=== PATIENT | female | born 2000 | race Caucasian/White ===

== ENCOUNTER 2021-07-04 11:39 | Emergency (ER) | payer OTHER, SELFPAY ==
--- NOTE | ~2021-07-04 | XR_ITS ---
EXAMINATION: XR CHEST CLINICAL INFORMATION: Asthma. COMPARISON: None TECHNIQUE: Frontal view of the chest was obtained. FINDINGS: No significant abnormality is noted involving the heart, lungs, mediastinum, bony thorax or soft tissues. XR/XR chest 1V IMPRESSION: No acute cardiopulmonary process.
[2021-07-04 11:44] VITALS: BP 139/95; PULSE 90; RESP 19; TEMP 36; O2SAT 98; BMI 23.6
[2021-07-04 12:25] LABS: COVID-19 Test Negative (Negative); IDNOW Serial# 16C4AD1C
[2021-07-04 12:26] LABS: Influenza A Negative (Negative); Influenza B2 Negative (Negative)
--- NOTE | 2021-07-04 12:27 | ED_ITS ---
HPI - Asthma General Chief Complaint: Asthma Stated Complaint: Asthma Time Seen by Provider: 07/04/21 11:52 Source: patient Mode of arrival: ambulatory History of Present Illness HPI Narrative: 21-year-old female with a past medical history of asthma presenting to the ED complaining productive cough, SOB, and chest tightness since yesterday. Also reports URI symptoms which are improving since last week. Admits to using albuterol inhaler yesterday 4x without relief. Denies fever, ear pain, recent travel, sick contacts, pedal edema MD complaint: asthma attack , shortness of breath and wheezing Onset (ago): day(s) Related Data Previous Rx's Medication Instructions Recorded prednisone 20 mg tablet 40 mg PO DAILY 4 Days #8 tab 07/04/21 Allergies Allergy/AdvReac Type Severity Reaction Status Date / Time No Known Allergies Allergy Verified 07/04/21 11:48 Review of Systems Review of Systems: Constitutional: No Fever, No Chills ENT/Mouth: No Ear Pain, + Nasal Congestion, No Sinus Pain, No Hoarseness, No sore throat, No Rhinorrhea, No Swallowing Difficulty Cardiovascular: + Chest tightness, + SOB Respiratory: + Cough, + Sputum, + Wheezing Gastrointestinal: No Nausea, No Vomiting, No Diarrhea, No Constipation, No Abdominal pain Genitourinary:, No Dysuria, No Urinary Frequency, No Hematuria, No Flank Pain Musculoskeletal: No joint pain, No Myalgias, No Joint Swelling Skin: No Skin Lesions, No rash Neuro: No Weakness, No Numbness, No Paresthesias Yes all other systems are reviewed and are negative [facility] Past Medical History Attestation statement: The following information was validated with the patient. Medical History Asthma Social History Social History Advance Directives: Yes Advance Directives Information Provided: Yes Advance Directives on File: No Physical Exam Vital Signs: Vital Signs: Last Vital Signs Temp 96.8 F 07/04/21 11:44 Pulse 107 H 07/04/21 12:34 Resp 16 07/04/21 12:34 BP 139/95 H 07/04/21 11:44 Pulse Ox 98 07/04/21 11:44 BMI result Body Mass Index 23.6 Const: General: cooperative, healthy appearing and no acute distress Orientation/consciousness: patient oriented x3 Limitations: no limitations HEENT: Head: Yes normal to inspection and Yes atraumatic Ears: hearing grossly normal bilaterally, external ears normal, TM's normal bilaterally and mastoids normal General nose exam: Normal external nose present Face and sinus: Yes normal facial exam Mouth: Normal oral and palatal mucosa present Throat: Yes posterior oropharynx normal, Yes tonsils normal, Yes uvula midline and No peritonsillar mass Eyes: General: appearance normal, both eyes and all related structures EOM: EOMs intact bilaterally Neck: Neck: Yes normal visual inspection and Yes no meningeal signs Resp: Other: + mild coarse lung sounds bibasilarly. Good air movement Effort & Inspection: normal respiratory effort, no respiratory distress, no stridor and not tachypneic Auscultation: clear to auscultation bilaterally and no wheezes Cardio: Rate: regular rate Heart sounds: S1 normal heart sound present and S2 normal heart sound present Skin: Rashes: no rashes Wounds: no wounds Neuro: General: patient oriented x3, tone normal and no meningeal signs Gait exam (Neuro): Normal gait present Extrem: General: Yes normal to inspection, Yes no pedal edema and Yes no calf tenderness Course Course Course Narrative: -COVID-19/influenza negative. -CXR unremarkable >> results discussed with patient including worrisome signs and symptoms and strict return precautions and need to close follow-up with PCP. Patient was supplied with albuterol inhaler in the emergency department MDM - Asthma MDM Narrative Medical decision making narrative: 21-year-old female with a past medical history of asthma presenting to the ED complaining productive cough, SOB, and chest tightness since yesterday. On exam vital signs stable, and 80/nontoxic appearing, no evidence of respiratory distress, talking in complete sentences, mild coarse lung sounds bibasilarly, no pedal edema/calf tenderness. Concern for asthma exacerbation vs bronchitis vs pneumonia. Symptoms atypical for ACS/PE Plan: COVID-19/influenza testing, CXR, DuoNeb, p.o. prednisone, Tessalon Perles, re-evaluate Differential Diagnosis Differential diagnosis: Likely Acute exacerbation, Acute asthmatic bronchitis and Pneumonia Medical Records Attestation: I reviewed the patient's medical records. Lab Data Attestation: I reviewed the patient's lab results. Labs: Lab Results 07/04/21 07/04/21 Range/Units 11:59 11:59 COVID-19 ([facility]) Negative (Negative) COVID-19 Clin Com See Note Influenza Type A (LE) Negative (Negative) Influenza Type B (LE) Negative (Negative) Influenza A & B Note See Note Discharge Plan Discharge Clinical Impression: Asthma with acute exacerbation Patient Disposition: Home, Self-Care Instructions: Asthma (DC) Additional Instructions: Use your inhaler at home. You were given an additional inhaler today in the emergency department as well as steroid, please take as prescribed. If you find herself needing her inhaler more, you have constant worsening shortness of breath, chest pain, or fever please return to the emergency department Please follow-up with her doctor You should be also using a nebulizer at home Prescriptions: New prednisone 20 mg tablet 40 mg PO DAILY 4 Days Qty: 8 0RF Referrals: Physician,Coleen J [Primary Care Provider] - 3 days
[2021-07-04] MEDS: Albuterol/Iprat 2.5/0.5MG 3 ML AMPUL.NEB INHALE (12:33)
[2021-07-04 12:34] VITALS: PULSE 107; RESP 16; O2SAT 100
[2021-07-04] MEDS: predniSONE 20 MG TABLET 40 MG PO (12:46)
[2021-07-04] MEDS: Benzonatate 100 MG CAPSULE 200 MG PO (12:47)
[2021-07-04] MEDS: Albuterol Sulfate 90 MCG 8 GM INHALER 2 PUFF INHALE (12:48)
--- NOTE | 2021-07-04 12:53 | PC.RT ---
Ms. Harp admits to seasonal allergies and has seen an launch check out in the past. Pt states she does not take anything for her seasonal allergies. Her albuterol inhaler she brought in with her is almost empty and her nebulizer at home is broken from what she states. Moy Tiwari tx given x 1 and duc well. No resp distress and no wheezes noted. HR 107 RR 16 SATS 99% on room air. Pt very nasal congested. A New Albuterol MDI was given to pt and was shown how to use with spacer. Recommended to follow up with PCP for further asthma control and also to watch her triggers. Especially when spring is here and trees, grass and certain pollens are releasing which are causing asthma exacerbation.
== END 2021-07-04 13:01 | disposition home or self-care (01) ==
PROVIDERS: Physician Assistant; Emergency Provider Emergency Medicine Emergency Medical Services
DX: J45.901 Unspecified asthma with (acute) exacerbation (principal); Z20.822 Contact with and (suspected) exposure to COVID-19; Z79.899 Other long term (current) drug therapy
CPT/HCPCS: 71045; 87502; 87635; 94640; 99283; 99284

== ENCOUNTER 2021-07-04 22:31 | Emergency (ER) | payer OTHER, SELFPAY ==
[2021-07-04 22:39] VITALS: BP 141/79; PULSE 113; RESP 18; TEMP 37; O2SAT 98; BMI 25.5
--- NOTE | 2021-07-04 23:16 | ED_ITS ---
HPI - Asthma General Chief Complaint: Asthma Stated Complaint: asthma Time Seen by Provider: 07/04/21 23:08 Source: patient Mode of arrival: ambulatory Limitations: no limitations History of Present Illness HPI Narrative: Patient comes to the emergency room after being evaluated for asthma earlier today. 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 Patient also concerned that her heart rate has been elevated. Patient does not have chest pain, no shortness of breath. Patient states the palpitations started after the nebuliz ation treatments that she received. Related Data Previous Rx's Medication Instructions Recorded prednisone 20 mg tablet 40 mg PO DAILY 4 Days #8 tab 07/04/21 Allergies Allergy/AdvReac Type Severity Reaction Status Date / Time No Known Allergies Allergy Verified 07/04/21 11:48 Review of Systems Review of Systems: Constitutional : No Weight loss, No Fever, No Chills, No Night Sweats, No Fatigue, No Malaise ENT/Mouth : No Hearing loss, No Ear Pain, No Nasal Congestion, No Sinus Pain, No Hoarseness, No sore throat, No Rhinorrhea, No Swallowing Difficulty Eyes: No Eye Pain, No Swelling, No Redness, No Foreign Body, No Discharge, No Vision Changes Cardiovascular : No Chest Pain, No SOB, No Dyspnea on Exertion, No Orthopnea, No Edema, complaining of Palpitations Respiratory : No Cough, No Sputum, No Wheezing, No Smoke Exposure, No Dyspnea Gastrointestinal : No Nausea, No Vomiting, No Diarrhea, No Constipation, No abdominal Pain, No Hematochezia, No Melena Genitourinary : no irregular bleeding, No Dysuria, No Urinary Frequency, No Hematuria, No Urinary Incontinence, No Urgency, No Flank Pain, No Urinary Flow Changes, No Hesitancy Musculoskeletal : No joint pain, No Myalgias, No Joint Swelling Skin : No Skin Lesions, No rash Neuro : No Weakness, No Numbness, No Paresthesias, No Loss of Consciousness, No Dizziness, No Headache Psych : No Anxiety/Panic, No Depression, No SI/HI/AH/VH, No Social Issues, Heme/Lymph: No Bruising, No Bleeding,No Lymphadenopathy Endocrine : No Polyuria, No Polydipsia, No Temperature Intolerance PMFSH Past Medical History Medical History Asthma Physical Exam Vital Signs: Vital Signs: Last Vital Signs Temp 98.6 F 07/04/21 22:39 Pulse 113 H 07/04/21 22:39 Resp 18 07/04/21 22:39 BP 141/79 H 07/04/21 22:39 Pulse Ox 98 07/04/21 22:39 BMI result Body Mass Index 25.5 Const: Other: Appearance: Alert. Oriented X3. No acute distress. Eyes: Pupils equal, round and reactive to light. ENT: Pharynx normal. Neck: Normal inspection. Neck supple. No lymph nodes noted. No crepitus CVS: Mild tachycardia, on physical exam it was 95/pulse ox, Pulses normal. Normal S1 and S2 Respiratory: No respiratory distress. Breath sounds normal. No Wheezing. No rales Abdomen: Soft and nontender. No rigidity. No distention. Skin: Skin warm and dry. Normal skin color. Normal skin turgor. Extremities: No lower extremity edema. No Lacerations. No Rash Neuro: Oriented X 3. No motor deficit. No sensory deficit. Moving all extremities. No slurred speech. CN 2 through 12 grossly intact Psych: calm, cooperative, normal affect Course Course Course Narrative: We will try to send a prescription of Xopenex to a 24 hour pharmacy. Discussed with the patient that Xopenex may not be initially approved, and may have to use albuterol. Patient states that her neb machine is not working. Therefore Xopenex would not work for her. Patient has albuterol at home, patient will pickers material handlers her prednisone tomorrow since she already had a dose today. Discharge Plan Discharge Clinical Impression: Palpitation Patient Disposition: Home, Self-Care Instructions: Heart Palpitations (DC) Additional Instructions: Please follow-up with your primary care physician tomorrow. If you have any worsening or new symptoms, please return to the emergency room or call 911 Prescriptions: No Action prednisone 20 mg tablet 40 mg PO DAILY 4 Days Qty: 8 0RF
== END 2021-07-05 | disposition home or self-care (01) ==
LOC: HO.ED 23:23
PROVIDERS: Emergency Provider Emergency Medicine
DX: R00.2 Palpitations (principal); J45.909 Unspecified asthma, uncomplicated
CPT/HCPCS: 99282; 99283

== ENCOUNTER 2021-10-06 01:33 | Emergency (ER) | payer OTHER, SELFPAY ==
--- NOTE | ~2021-10-06 | CT_ITS ---
EXAMINATION: CT ABDOMEN AND PELVIS WITH CONTRAST CLINICAL INFORMATION: Severe right flank and lower quadrant pain COMPARISON: None TECHNIQUE: Multidetector volumetric images were obtained from the superior aspect of the liver through the pubic symphysis following administration 85 mL of Omnipaque 350 intravenous contrast. Sagittal and coronal reformatted images were obtained on the technologist's workstation. Oral contrast: No This CT examination was performed using dose optimization techniques as appropriate, variously including the following: *Automated exposure control *Adjustment of mA and/or kV according to patient size (this includes techniques or standardized protocols for targeted exams where dose is matched to indication/reason for exam; i.e. extremities or head) *Use of iterative reconstruction technique DLP: 550 mGy-cm FINDINGS: LUNG BASES: The visualized lung bases are unremarkable. LIVER, GALLBLADDER, AND BILIARY TREE: The liver is normal in size, shape, and attenuation. No focal hepatic lesion or biliary ductal dilatation is present. The gallbladder is unremarkable with no evidence of radiopaque gallstones, gallbladder wall thickening, or obvious pericholecystic inflammatory changes. PANCREAS: Unremarkable. SPLEEN: Unremarkable. ADRENAL GLANDS: Unremarkable. KIDNEYS AND URETERS: There is a distal right ureteral calculus near the ureterovesicular junction measuring 4 mm with mild hydronephrosis. Right nephrogram is delayed. No left hydronephrosis or obstructing calculus. BLADDER: Diffuse mural prominence, which may be due to underdistention. GASTROINTESTINAL TRACT: No evidence of bowel obstruction or significant wall thickening. The appendix is unremarkable. No free fluid or free air is seen. ABDOMINAL WALL: No significant hernia is appreciated. LYMPH NODES: Normal. VASCULAR: Unremarkable. PELVIC VISCERA: Unremarkable. OSSEOUS STRUCTURES: Unremarkable. CT/CT abdomen pelvis w con IMPRESSION: Distal right ureteral calculus measuring 4 mm with mild hydroureteronephrosis.
[2021-10-06 01:57] VITALS: BP 95/74; PULSE 93; RESP 16; TEMP 36.9; O2SAT 97; BMI 28.7
[2021-10-06 02:24] LABS: MANUAL DIFF FLAG NO
[2021-10-06 02:33] LABS: Basophils Absolute Auto 0.1 X10*3/uL (0.0-0.2); Basophils Percent Auto 0.3 % (0-2); Eosinophils Absolute Auto 0.1 X10*3/uL (0.0-0.4); Eosinophils Percent Auto 0.6 % (0-4); Hematocrit 37.7 % (37.0-47.0); Hemoglobin 12.6 g/dl (12.0-16.0); Imm Gran Abs Auto 0.05 X10*3/uL (0.00-0.03); Imm Gran Pct Auto 0.3 % (0.0-0.4); Lymphocytes Absolute Auto 2.6 X10*3/uL (1.2-4.9); Lymphocytes Percent Auto 16.9 % (20-40); Mean Corpuscular HGB Conc 33.4 g/dl (31.0-35.0); Mean Corpuscular Hemoglobin 28.3 pg (27.0-33.0); Mean Corpuscular Volume 84.5 fL (80.0-98.0); Mean Platelet Volume 10.6 fL (9.4-12.3); Monocytes Percent Auto 6.6 % (2-11); Neutrophils Absolute Auto 11.7 x10*3/uL (2.0-8.3); Neutrophils Percent Auto 75.3 % (45-73); Platelet Count 265 X10*3/uL (160-400); Red Blood Count 4.46 X10*6/uL (4.20-5.50); Red Cell Distribution Width 12.9 % (11.0-16.0); White Blood Count 15.5 X10*3/uL (4.8-10.8)
[2021-10-06 02:43] LABS: Alanine Aminotransferase 15 U/L (0-31); Albumin Level 4.6 g/dL (3.5-5.0); Alkaline Phosphatase 62 U/L (39-117); Anion Gap 13 (12-20); Aspartate Amino Transferase 16 U/L (5-31); Bilirubin Total 0.5 mg/dL (0.0-1.0); Blood Urea Nitrogen 16 mg/dL (9-16); Calcium 9.3 mg/dL (8.4-10.2); Carbon Dioxide 23 mmol/L (22-29); Chloride 109 mmol/L (96-108); Creatinine Clr Calc Pharmacy 74.7; Estimated Glomerular Filt Rate > 60; Glucose Random 145 mg/dL (60-115); Lipase 24 U/L (8-78); Potassium 3.7 mmol/L (3.3-5.1); Sodium 141 mmol/L (135-145); Total Protein 7.2 g/dL (6.5-8.0)
[2021-10-06 02:45] LABS: UPreg QC Valid YES; Urine Pregnancy NEGATIVE (NEGATIVE)
[2021-10-06 03:00] LABS: Appearance Urine HAZY; Color Urine DK YELLOW; Glucose Urine UA NEG (NEG); Leukocyte Esterase Urine NEG (NEG); Nitrite Urine NEG (NEG); PH 5.5 (5.0-8.0); Specific Gravity - Urine >= 1.030 (1.005-1.025); UACC Culture Trigger NO; Urine Blood 1+ (NEG); Urine Ketones 15 MG/DL (NEG); Urine Protein TRACE MG/DL (NEG-TRACE)
[2021-10-06 03:08] LABS: Bacteria Urine 1+ /LPF; Calcium Oxalate Crystals Urine 1+ /LPF; Mucus Urine 4+ /LPF; Squamous Epithelial Cell Urine 3+ /LPF; WBC Urine 0-2 /HPF (0-4)
[2021-10-06 04:06] VITALS: BP 124/75; PULSE 71; RESP 20; O2SAT 99
--- NOTE | 2021-10-06 05:43 | ED_ITS ---
HPI - Abdominal Pain General Chief Complaint: Abdominal Pain Stated Complaint: stomach pain & vomiting Time Seen by Provider: 10/06/21 05:25 Source: patient and family (Mother, Blanca) Mode of arrival: ambulatory Limitations: no limitations History of Present Illness HPI narrative: 21-year-old female who presents emergency department for evaluation of right lower abdominal and right flank pain. The patient has been having intermittent pain times 2-3 weeks. The pain is gotten worse over the past 3-4 days. The patient describes the pain as a stabbing twisting sensation. She points to her right lower quadrant and right flank when asked to localize the pain. She states that the pain is 10/10 at its worse. At the time of my evaluation the pain was 5/10. The patient states that she was seen at [facility] several days prior and had an ultrasound which was unremarkable, she also had blood work which was also unremarkable. She states that last night at 23:00 hours the pain got significantly worse therefore she came to the emergency department for evaluation. She denied fever. She states she has been experiencing chills. She has asthma and she states that she has rhinorrhea cough chest pain and shortness of breath secondary to her asthma. She had associated nausea with 1 episode of vomiting, she had no diarrhea. She denied frequency or dysuria. She denied black tarry stools or bloody stools. She states she is not sexually active. MD elicited complaint: abdominal pain and flank pain Pertinent past history: none Onset (ago): week(s) (3 weeks, worse last night at 23:00 hours) Pain Consistency: intermittent Location: RLQ and R flank Severity: severe Pain scale (0-10): 10 Quality: stabbing and other (Twisting) Radiation: none Migration to: no migration Exacerbating factors: movement Relieving factors: nothing Associated symptoms: nausea, vomiting and chills Treatments prior to arrival: NSAIDs Related Data Hx Last Menstrual Period: Three months prior, irregular Patient : No Previous Rx's Medication Instructions Recorded prednisone 20 mg tablet 40 mg PO DAILY 4 days #8 tabs 07/04/21 morphine 15 mg immediate release 15 mg PO Q4-6H PRN pain #14 tabs 10/06/21 tablet ondansetron 4 mg disintegrating 4 mg PO Q6-8H PRN nausea and 10/06/21 tablet vomiting #14 tabs prednisone 20 mg tablet 40 mg PO DAILY 7 days #14 tabs 10/06/21 Allergies Allergy/AdvReac Type Severity Reaction Status Date / Time No Known Allergies Allergy Verified 10/06/21 01:58 Review of Systems Review of Systems Yes all other systems are reviewed and are negative [facility] Past Medical History [facility] Narrative: Past medical history: Asthma. Past surgical history: None. Social history: She denies tobacco, alcohol and drug use. Medical History Asthma Hx Last Menstrual Period: Three months prior, irregular Social History Social History Advance Directives: No Advance Directives Information Provided: Yes Patient : No Physical Exam ED Vital Signs: Vital Signs - 24 hr 10/06/21 01:57 10/06/21 04:06 10/06/21 06:55 Temperature 98.5 F Pulse Rate 93 71 75 Respiratory Rate 16 20 14 Blood Pressure 95/74 124/75 119/70 Pulse Oximetry 97 99 99 Oxygen Delivery Method Room Air Room Air Room Air BMI result Body Mass Index 28.7 Const Other: Awake, alert, female patient, pleasant and cooperative, answers all questions appropriately, appears to be in distress secondary to her pain Orientation/consciousness: oriented to person [facility] Head: Yes normal to inspection, Yes normocephalic and Yes atraumatic Ears: external ears normal General nose exam: Normal external nose present Face and sinus: Yes normal facial exam Mouth: Normal oral and palatal mucosa present Throat: Yes posterior oropharynx normal Eyes General: appearance normal, both eyes and all related structures Pupils: Equal, round and reactive pupils present Neck Neck: Yes normal visual inspection, Yes no lymphadenopathy, Yes trachea midline and Yes supple Chest Chest palpation & inspection: normal inspection of the chest and normal palpation of entire chest wall Resp Effort & Inspection: normal respiratory effort and able to speak in complete sentences Auscultation: clear to auscultation bilaterally Cardio Rate: regular rate Rhythm: regular rhythm Heart sounds: S1 normal heart sound present, S2 normal heart sound present and no murmurs GI Inspection: Yes normal to inspection Palpation (GI): Soft to palpation, Tenderness to palpation present (GI) in the RLQ (Mild), periumbilically (Moderate) and suprapubicly (Mild) and no guarding Auscultation: normal bowel sounds General: Yes CVA tenderness on the right (Moderate) Back/Spine/Pelvis Back: CVA tenderness Skin General skin exam: no rashes or lesions noted Neuro General: oriented to person Cranial nerves: Yes Equal, round and reactive pupils present Cognition (Neuro): normal cognition Motor exam (neuro): 5/5 motor strength present throughout Extrem General: Yes normal to inspection Psych Appearance: grossly normal Speech and movement: Normal speech and movement present Affect: normal affect Attitude: cooperative Course Course Course Narrative: 21-year-old female who presents emergency department for evaluation of intermittent abdominal pain x3 weeks, worse in the past week with increased pain last night at 23:00 hours. Patient's pain is located in her umbilical right lower quadrant and right flank area. She had associated chills, nausea and vomiting with no change in bowel movements and no dysuria. Vital signs were unremarkable. Physical examination did reveal right lower quadrant, umbilical and right flank tenderness. 0551: Laboratory evaluation: WBC elevated 15,000. Glucose elevated 145. Urinalysis 1+ blood, negative nitrates, negative leukocyte esterase. Microscopic 4 RBCs, 2 WBCs, 1+ bacteria, 3+ squamous cells. Urine yanet t was negative. LFTs and lipase were normal. Patient's pain was treated with Toradol 30 mg IV and her nausea was treated with Zofran 4 mg IV. I will obtain an CT scan with IV contrast to further ev aluate her pain. 0712: Radiology evaluation CT scan of the abdomen pelvis with IV contrast radio logy reading is below: IMPRESSION: Distal right ureteral calculus measuring 4 mm with mild hydroureteronephrosis.? Dictated By: Vipul Mulligan MD The patient states that her pain significantly improved with the Toradol but is coming back she was given a 2nd dose of Toradol IV and prednisone 40 mg orally. The patient will be discharged home with a prescription for prednisone 40 mg once a day for 7 days, and advised to take Tylenol as well, he was given a prescription for morphine and Zofran. Patient was advised to strain your urine advised to follow-up with our urologist within 1-2 weeks for re-evaluation. MDM - Abdominal Pain Lab Data Result diagrams: 10/06/21 02:20 10/06/21 02:20 Labs: Lab Results 10/06/21 10/06/2110/06/22 Range/Units 02:20 02:20 02:33 WBC 15.5 H (4.8-10.8) X10*3/uL RBC 4.46 (4.20-5.50) X10*6/uL Hgb 12.6 (12.0-16.0) g/dl Hct 37.7 (37.0-47.0) % MCV 84.5 (80.0-98.0) fL MCH 28.3 (27.0-33.0) pg MCHC 33.4 (31.0-35.0) g/dl RDW 12.9 (11.0-16.0) % Plt Count 265 (160-400) X10*3/uL MPV 10.6 (9.4-12.3) fL Immature Gran % (Auto) 0.3 (0.0-0.4) % Neut % (Auto) 75.3 H (45-73) % Lymph % (Auto) 16.9 L (20-40) % [place] % (Auto) 6.6 (2-11) % Eos % (Auto) 0.6 (0-4) % Baso % (Auto) 0.3 (0-2) % Lymph # (Auto) 2.6 (1.2-4.9) X10*3/uL [place] # (Auto) 1.0 (0.1-1.2) X10*3/uL Eos # (Auto) 0.1 (0.0-0.4) X10*3/uL Baso # (Auto) 0.1 (0.0-0.2) X10*3/uL Abs Immat Gran (auto) 0.05 H (0.00-0.03) X10*3/uL Absolute Neuts (auto) 11.7 H (2.0-8.3) x10*3/uL Absolute Nucleated RBC 0.000 (0.0-0.012) X10*3/uL Nucleated RBC % (auto) 0.0 (0.0-0.2) /100WBC Sodium 141 (135-145) mmol/L Potassium 3.7 (3.3-5.1) mmol/L Chloride 109 H (96-108) mmol/L Carbon Dioxide 23 (22-29) mmol/L Anion Gap 13 (12-20) BUN 16 (9-16) mg/dL Creatinine 1.11 (0.5-1.4) mg/dL Estim Creat Clear Calc 74.7 Estimated GFR > 60 Random Glucose 145 H (60-115) mg/dL Calcium 9.3 (8.4-10.2) mg/dL Total Bilirubin 0.5 (0.0-1.0) mg/dL AST 16 (5-31) U/L ALT 15 (0-31) U/L Alkaline Phosphatase 62 (39-117) U/L Total Protein 7.2 (6.5-8.0) g/dL Albumin 4.6 (3.5-5.0) g/dL Lipase 24 (8-78) U/L Urine Color DK YELLOW Urine Appearance HAZY Urine pH 5.5 (5.0-8.0) Ur Specific [place] >= 1.030 H (1.005-1.025) Urine Protein TRACE (NEG-TRACE) MG/DL Urine Glucose (UA) NEG (NEG) MG/DL Urine Ketones 15 (NEG) MG/DL Urine Blood 1+ H (NEG) Urine Nitrite NEG (NEG) Ur Leukocyte Esterase NEG (NEG) Urine RBC 1-4 (0) /HPF Urine WBC 0-2 (0-4) /HPF Ur Squamous Epith Cells 3+ /LPF Calcium Oxalate Crystal 1+ /LPF Urine Bacteria 1+ /LPF Urine Mucus 4+ /LPF Urine Test (NEGATIVE) 10/06/21 Range/Units 02:34 WBC (4.8-10.8) X10*3/uL RBC (4.20-5.50) X10*6/uL Hgb (12.0-16.0) g/dl Hct (37.0-47.0) % MCV (80.0-98.0) fL MCH (27.0-33.0) pg MCHC (31.0-35.0) g/dl RDW (11.0-16.0) % Plt Count (160-400) X10*3/uL MPV (9.4-12.3) fL Immature Gran % (Auto) (0.0-0.4) % Neut % (Auto) (45-73) % Lymph % (Auto) (20-40) % [place] % (Auto) (2-11) % Eos % (Auto) (0-4) % Baso % (Auto) (0-2) % Lymph # (Auto) (1.2-4.9) X10*3/uL [place] # (Auto) (0.1-1.2) X10*3/uL Eos # (Auto) (0.0-0.4) X10*3/uL Baso # (Auto) (0.0-0.2) X10*3/uL Abs Immat Gran (auto) (0.00-0.03) X10*3/uL Absolute Neuts (auto) (2.0-8.3) x10*3/uL Absolute Nucleated RBC (0.0-0.012) X10*3/uL Nucleated RBC % (auto) (0.0-0.2) /100WBC Sodium (135-145) mmol/L Potassium (3.3-5.1) mmol/L Chloride (96-108) mmol/L Carbon Dioxide (22-29) mmol/L Anion Gap (12-20) BUN (9-16) mg/dL Creatinine (0.5-1.4) mg/dL Estim Creat Clear Calc Estimated GFR Random Glucose (60-115) mg/dL Calcium (8.4-10.2) mg/dL Total Bilirubin (0.0-1.0) mg/dL AST (5-31) U/L ALT (0-31) U/L Alkaline Phosphatase (39-117) U/L Total Protein (6.5-8.0) g/dL Albumin (3.5-5.0) g/dL Lipase (8-78) U/L Urine Color Urine Appearance Urine pH (5.0-8.0) Ur Specific [place] (1.005-1.025) Urine Protein (NEG-TRACE) MG/DL Urine Glucose (UA) (NEG) MG/DL Urine Ketones (NEG) MG/DL Urine Blood (NEG) Urine Nitrite (NEG) Ur Leukocyte Esterase (NEG) Urine RBC (0) /HPF Urine WBC (0-4) /HPF Ur Squamous Epith Cells /LPF Calcium Oxalate Crystal /LPF Urine Bacteria /LPF Urine Mucus /LPF Urine Test NEGATIVE (NEGATIVE) Discharge Plan Discharge Clinical Impression: Renal colic on right side, Calculus of right ureter, Hydronephrosis of right kidney Patient Disposition: Home, Self-Care Instructions: Kidney Stones (ED), How to Strain Your Urine (ED) Additional Instructions: The CT scan of your abdomen pelvis with IV contrast revealed a 4 mm kidney stone in the right ureter (the tube that connects the kidney to the bladder). The stone is sitting right at the junction where the ureter attaches to the blood (ureteral vesicular junction-UVJ). Take prednisone 20 mg pills, 2 pills once a day for 7 days. While you are taking prednisone, do not take any NSAIDs (Motrin, Advil, ibuprofen, Aleve, naproxen). Take Tylenol (acetaminophen) 2 pills every 4-6 hours as needed for pain. For pain not relieved by prednisone or Tylenol take morphine 15 mg pills, 1 pill every 4 hours as needed for pain. This medication will make you sleepy, do not drive or work while taking this medication. Morphine is a narcotic medication and can be addicting. If you are concerned about addiction you can ask the pharmacist for less pills or do not get this prescription filled. Strain your urine. If you catch the stone bring it to the urologist. Follow-up with our urologist, Dr Downing in 1 -2 weeks Please return to the emergency department if your symptoms get worse or if you develop any symptoms that are concerning to you. Prescriptions: New prednisone 20 mg tablet 40 mg PO DAILY 7 Days Qty: 14 0RF morphine 15 mg tablet 15 mg PO Q4-6H PRN (Reason: pain) Qty: 14 0RF Rx Instructions: Patient may request partial fill; Partial Fill upon patient request. ondansetron 4 mg tablet,disintegrating 4 mg PO Q6-8H PRN (Reason: nausea and vomiting) Qty: 14 0RF No Action prednisone 20 mg tablet 40 mg PO DAILY 4 Days Qty: 8 0RF
[2021-10-06] MEDS: Ketorolac Tromethamine 15 MG/ML VIAL 30 MG IVPUSH ×2 (05:50→07:38)
[2021-10-06] MEDS: 0.9 % Sodium Chloride 1,000 ML 999 ML IV (05:50)
[2021-10-06] MEDS: ondansetron HCL 4 MG/2 ML VIAL IVPUSH (05:50)
[2021-10-06] MEDS: iohexoL 350 MG/ML 100 ML INFUS..BTL 85 ML IV (06:07)
[2021-10-06 06:55] VITALS: BP 119/70; PULSE 75; RESP 14; O2SAT 99
[2021-10-06] MEDS: predniSONE 20 MG TABLET 40 MG PO (07:39)
== END 2021-10-06 08:00 | disposition home or self-care (01) ==
PROVIDERS: Emergency Provider Emergency Medicine Emergency Medical Services; PCP Pediatrics
DX: N13.2 Hydronephrosis with renal and ureteral calculous obstruction (principal); R10.31 Right lower quadrant pain; R10.2 Pelvic and perineal pain; Z79.899 Other long term (current) drug therapy
CPT/HCPCS: 36415; 74177; 80053; 81001; 81025; 83690; 85025; 96361; 96374; 96375; 96376; 99284; J1885; J2405; Q9967

== ENCOUNTER 2023-08-30 07:18 | Emergency (ER) | payer OTHER, SELFPAY ==
--- NOTE | ~2023-08-30 | CT_ITS ---
EXAMINATION: CT ABDOMEN AND PELVIS WITH CONTRAST CLINICAL INFORMATION: Right-sided abdominal pain with rectal bleeding COMPARISON: CT abdomen and pelvis 10/06/2021 TECHNIQUE: Multidetector volumetric images were obtained from the superior aspect of the liver through the pubic symphysis following administration 85 mL of Omnipaque 350 intravenous contrast. Sagittal and coronal reformatted images were obtained on the technologist's workstation. Oral contrast: No This CT examination was performed using dose optimization techniques as appropriate, variously including the following: *Automated exposure control *Adjustment of mA and/or kV according to patient size (this includes techniques or standardized protocols for targeted exams where dose is matched to indication/reason for exam; i.e. extremities or head) *Use of iterative reconstruction technique DLP: 631 mGy-cm FINDINGS: LUNG BASES: The visualized lung bases are unremarkable. Some minimal left basilar atelectasis is present. LIVER, GALLBLADDER, AND BILIARY TREE: The liver is normal in size, shape, and attenuation. No focal hepatic lesion or biliary ductal dilatation is present. The gallbladder is unremarkable with no evidence of radiopaque gallstones, gallbladder wall thickening, or obvious pericholecystic inflammatory changes. PANCREAS: Unremarkable. SPLEEN: Unremarkable. ADRENAL GLANDS: Unremarkable. KIDNEYS AND URETERS: Previously seen distal obstructing right ureteral calculus with hydronephrosis is no longer present. The kidneys are normal in size, shape, and attenuation. No hydronephrosis, hydroureter, or calculi seen. No perinephric stranding. BLADDER: Unremarkable. GASTROINTESTINAL TRACT: The small and large bowel are unremarkable. The appendix is unremarkable. ABDOMINAL WALL: No significant hernia is appreciated. There is a tiny periumbilical hernia seen containing only fat. LYMPH NODES: Normal. VASCULAR: Unremarkable. PELVIC VISCERA: Unremarkable. OSSEOUS STRUCTURES: Unremarkable. CT/CT abdomen pelvis w IV con IMPRESSION: 1. A cause for the patient's right-sided abdominal pain and rectal bleeding has not been found. 2. Previously seen distal right ureteral calculus is no longer present. Fleischner guidelines were followed.
[2023-08-30 07:35] VITALS: BP 109/58; PULSE 67; RESP 16; TEMP 36.9; O2SAT 99; BMI 26.5
[2023-08-30 07:53] LABS: MANUAL DIFF FLAG NO
[2023-08-30 07:54] LABS: Basophils Absolute Auto 0.1 X10*3/uL (0.0-0.2); Basophils Percent Auto 0.7 % (0-2); Eosinophils Absolute Auto 0.1 X10*3/uL (0.0-0.4); Eosinophils Percent Auto 1.9 % (0-4); Hematocrit 36.9 % (37.0-47.0); Hemoglobin 12.5 g/dl (12.0-16.0); Imm Gran Abs Auto 0.01 X10*3/uL (0.00-0.03); Imm Gran Pct Auto 0.1 % (0.0-0.4); Lymphocytes Absolute Auto 3.1 X10*3/uL (1.2-4.9); Lymphocytes Percent Auto 42.4 % (20-40); Mean Corpuscular HGB Conc 33.9 g/dl (31.0-35.0); Mean Corpuscular Hemoglobin 28.5 pg (27.0-33.0); Mean Corpuscular Volume 84.2 fL (80.0-98.0); Mean Platelet Volume 10.5 fL (9.4-12.3); Monocytes Absolute Auto 0.6 X10*3/uL (0.1-1.2); Monocytes Percent Auto 8.7 % (2-11); Neutrophils Absolute Auto 3.4 x10*3/uL (2.0-8.3); Neutrophils Percent Auto 46.2 % (45-73); Platelet Count 265 X10*3/uL (160-400); Red Blood Count 4.38 X10*6/uL (4.20-5.50); White Blood Count 7.3 X10*3/uL (4.8-10.8)
--- NOTE | 2023-08-30 08:03 | ED_ITS ---
HPI - GI Bleed General Chief complaint: Abdominal Pain Stated complaint: rectal bleeding abd pain Time Seen by Provider: 08/30/23 07:45 Source: patient Mode of arrival: ambulatory Limitations: no limitations History of Present Illness ED Provider: Reema Moulton PA-C HPI Narrative: 23-year-old female with a history of PCOS, endometriosis, kidney stones who presents to the ER for evaluation of rectal bleeding that started 4 days ago. Patient reports that it started as only a small amount of bright red blood, only on the toilet paper when she wiped. Over the past few days she has had recurrent episodes with blood when wiping. She has had normal formed, brown bowel movements. She did have 1 episode yesterday where she had to run to the bathroom and passed only bright red blood. She is since developed right-sided abdominal pain, dizziness and weakness. Last episode of rectal bleeding was yesterday, she had 2 episode yesterday. None today. No associated nausea or vomiting. No fever or chills. No history of GI bleeding in the past. No recent constipation. No history of hemorrhoids. Last menstrual period was 1 month ago, she usually gets it every 3 months. No vaginal bleeding. No hematuria. complaint: blood on toilet paper and gross hematochezia Onset (ago): day(s) Related Data Previous Rx's ?Medication ?Instructions ?Recorded prednisone 20 mg tablet 40 mg (2 x 20 mg) PO DAILY 4 days 07/04/21 #8 tabs morphine 15 mg immediate release 15 mg PO Q4-6H PRN pain #14 tabs 10/06/21 tablet ondansetron 4 mg disintegrating 4 mg PO Q6-8H PRN nausea and 10/06/21 tablet vomiting #14 tabs prednisone 20 mg tablet 40 mg (2 x 20 mg) PO DAILY 7 days 10/06/21 #14 tabs hydrocortisone acetate 25 mg 25 mg KS BEDTIME #12 ea 08/30/23 rectal suppository Allergies Allergy/AdvReac Type Severity Reaction Status Date / Time No Known Allergies Allergy Verified 08/30/23 07:36 [facility] Past Medical History Medical History Asthma Social History Social History Alcohol intake: never Smoked in Last 30 Days: No Use of substances other than those prescribed or required for medical reasons: No Advance Directives: No Advance Directives Information Provided: No Physical Exam 2 Vital Signs: Vital Signs: Last Vital Signs Temp 98.4 F 08/30/23 07:35 Pulse 67 08/30/23 07:35 Resp 16 08/30/23 07:35 BP 109/58 L 08/30/23 07:35 Pulse Ox 99 08/30/23 07:35 O2 Del Method Room Air 08/30/23 07:35 BMI result Body Mass Index 26.5 Appearance: Alert. Oriented X3. No acute distress. Head: normocephalic, atraumatic. Eyes: Pupils equal, round and reactive to light. ENT: Pharynx normal. No tonsillar swelling or exudate. Neck: Normal inspection. Neck supple. CVS: Normal heart rate and rhythm. Pulses normal. Respiratory: No respiratory distress. Breath sounds normal. Abdomen: Soft with tenderness to deep palpation in the RLQ without rebound or guarding. normal active +BS x4 ALANNA: normal external inspection, no external hemorrhoids, trace brown stool in rectal vault, no palpable internal hemorrhoids, heme negative stool Skin: Skin warm and dry. Normal skin color. Normal skin turgor. No rashes. Extremities: No lower extremity edema. No joint swelling. Neuro/psych: Oriented X 3. No motor deficit. No sensory deficit. CN II-XII intact. Normal speech and cognition. Medications Administered Discontinued Medications Generic Name Dose Route Start Last Admin Trade Name Freq PRN Reason Stop Dose Admin Iohexol 100 ml 08/30/23 09:20 08/30/23 09:20 Iohexol 350 Mg/Ml 100 Ml Infus..Btl IV 08/30/23 09:21 85 ml ONCE ONE Administration Medical Decision Making Medical Decision Making MDM Narrative: 23-year-old female with a history of PCOS, endometriosis, kidney stones who presents to the ER for evaluation of rectal bleeding that started 4 days ago. No obvious source of bleeding on exam. Lab workup showing normal hemoglobin. Vital signs are stable. Exam with soft abdomen although she has some right- sided tenderness so CT scan of the abdomen was ordered. This was normal with no acute findings. Patient may have internal hemorrhoids as the source of her bleeding. No obvious diverticular source on CT scan. Patient has had no bleeding episodes here. No bleeding episodes at all today. Will plan to start empiric treatment for possible internal hemorrhoids, refer to GI for further evaluation and treatment. Return precautions were discussed with patient and her mom. GI referral made, they will call for an appointment. Stable for discharge with close monitoring at home. Differential Diagnosis Differential Diagnoses: The differential diagnosis associated with the presentation includes internal hemorrhoids, external hemorrhoids, diverticular bleeding, inflammatory bowel disease, anal fissure Admission/Observation Consideration of admission/observation: Escalation of care including admission/observation considered Lab Data MDM Lab Attestation statement: I reviewed the patient's lab results. No anemia 08/30/23 07:48 08/30/23 07:48 Labs: Lab Results 08/30/23 08/30/23 Range/Units 07:48 11:29 WBC 7.3 (4.8-10.8) X10*3/uL RBC 4.38 (4.20-5.50) X10*6/uL Hgb 12.5 (12.0-16.0) g/dl Hct 36.9 L (37.0-47.0) % MCV 84.2 (80.0-98.0) fL MCH 28.5 (27.0-33.0) pg MCHC 33.9 (31.0-35.0) g/dl RDW 13.0 (11.0-16.0) % Plt Count 265 (160-400) X10*3/uL MPV 10.5 (9.4-12.3) fL Immature Gran % (Auto) 0.1 (0.0-0.4) % Neut % (Auto) 46.2 (45-73) % Lymph % (Auto) 42.4 H (20-40) % Bracken % (Auto) 8.7 (2-11) % Eos % (Auto) 1.9 (0-4) % Baso % (Auto) 0.7 (0-2) % Lymph # (Auto) 3.1 (1.2-4.9) X10*3/uL Bracken # (Auto) 0.6 (0.1-1.2) X10*3/uL Eos # (Auto) 0.1 (0.0-0.4) X10*3/uL Baso # (Auto) 0.1 (0.0-0.2) X10*3/uL Abs Immat Gran (auto) 0.01 (0.00-0.03) X10*3/uL Absolute Neuts (auto) 3.4 (2.0-8.3) x10*3/uL Absolute Nucleated RBC 0.000 (0.0-0.012) X10*3/uL Nucleated RBC % (auto) 0.0 (0.0-0.2) /100WBC Sodium 143 (135-145) mmol/L Potassium 4.6 (3.3-5.1) mmol/L Chloride 110 H (96-108) mmol/L Carbon Dioxide 25 (22-29) mmol/L Anion Gap 13 (12-20) BUN 11 (9-16) mg/dL Creatinine 0.75 (0.5-1.4) mg/dL Estim Creat Clear Calc 104.6 Estimated GFR > 60 Random Glucose 91 (60-115) mg/dL Calcium 9.3 (8.4-10.2) mg/dL Total Bilirubin 0.2 (0.0-1.0) mg/dL AST 16 (5-31) U/L ALT 14 (0-31) U/L Alkaline Phosphatase 53 (39-117) U/L Total Protein 7.3 (6.5-8.0) g/dL Albumin 4.3 (3.5-5.0) g/dL Lipase 46 (8-78) U/L Beta HCG, Quant < 2 mIU/mL Stool Occult Blood NEGATIVE (NEGATIVE) Independent Interpretation I performed an independent interpretation of an: CT Scan Interpretation: no colonic wall stranding or visible abscess, no air fluid levels to suggest obstruction. agree w/ radiology read Radiology Impression Discussion of test interpretation with radiology: I have reviewed the radiologist's reading. Radiologist Impression: EXAMINATION: CT ABDOMEN AND PELVIS WITH CONTRAST CLINICAL INFORMATION: Right-sided abdominal pain with rectal bleeding COMPARISON: CT abdomen and pelvis 10/06/2021 TECHNIQUE: Multidetector volumetric images were obtained from the superior aspect of the liver through the pubic symphysis following administration 85 mL of Omnipaque 350 intravenous contrast. Sagittal and coronal reformatted images were obtained on the technologist's workstation. Oral contrast: No This CT examination was performed using dose optimization techniques as appropriate, variously including the following: *Automated exposure control *Adjustment of mA and/or kV according to patient size (this includes techniques or standardized protocols for targeted exams where dose is matched to indication/reason for exam; i.e. extremities or head) *Use of iterative reconstruction technique DLP: 631 mGy-cm FINDINGS: LUNG BASES: The visualized lung bases are unremarkable. Some minimal left basilar atelectasis is present. LIVER, GALLBLADDER, AND BILIARY TREE: The liver is normal in size, shape, and attenuation. No focal hepatic lesion or biliary ductal dilatation is present. The gallbladder is unremarkable with no evidence of radiopaque gallstones, gallbladder wall thickening, or obvious pericholecystic inflammatory changes. PANCREAS: Unremarkable. SPLEEN: Unremarkable. ADRENAL GLANDS: Unremarkable. KIDNEYS AND URETERS: Previously seen distal obstructing right ureteral calculus with hydronephrosis is no longer present. The kidneys are normal in size, shape, and attenuation. No hydronephrosis, hydroureter, or calculi seen. No perinephric stranding. BLADDER: Unremarkable. GASTROINTESTINAL TRACT: The small and large bowel are unremarkable. The appendix is unremarkable. ABDOMINAL WALL: No significant hernia is appreciated. There is a tiny periumbilical hernia seen containing only fat. LYMPH NODES: Normal. VASCULAR: Unremarkable. PELVIC VISCERA: Unremarkable. OSSEOUS STRUCTURES: Unremarkable. CT/CT abdomen pelvis w IV con IMPRESSION: 1. A cause for the patient's right-sided abdominal pain and rectal bleeding has not been found. 2. Previously seen distal right ureteral calculus is no longer present. Independent Historian Clinical information obtained from an independent historian. History obtained from or confirmed by: Parent External Record Review External record reviewed: Outpatient record, Prior outpatient labs and Prior outpatient radiology Prescription Management I considered prescription management with: Pain Medication Critical Care Time Critical Care Time Critical Care Time: No Discharge Plan Discharge Clinical Impression: Rectal bleed Patient Disposition: Home, Self-Care Instructions: Rectal Bleeding (ED) Additional Instructions: Your lab workup today was unremarkable. Your CT scan was normal. Recommend trial of hydrocortisone rectal suppositories for possible internal hemorrhoids as a cause of your bleeding. Recommend following up with Gastroenterology for further evaluation and treatment. Call for an appointment. Name and number below. If you develop new or worsening symptoms call 911 or come back to the ER for further evaluation. Prescriptions: New hydrocortisone acetate 25 mg suppository 25 mg KS BEDTIME Qty: 12 0RF No Action prednisone 20 mg tablet 40 mg PO DAILY 4 Days Qty: 8 0RF prednisone 20 mg tablet 40 mg PO DAILY 7 Days Qty: 14 0RF morphine 15 mg tablet 15 mg PO Q4-6H PRN (Reason: pain) Qty: 14 0RF Rx Instructions: Patient may request partial fill; Partial Fill upon patient request. ondansetron 4 mg tablet,disintegrating 4 mg PO Q6-8H PRN (Reason: nausea and vomiting) Qty: 14 0RF [place]: [facility] [Provider Group] Print Language: [place]
[2023-08-30 08:14] LABS: Alanine Aminotransferase 14 U/L (0-31); Albumin Level 4.3 g/dL (3.5-5.0); Alkaline Phosphatase 53 U/L (39-117); Anion Gap 13 (12-20); Aspartate Amino Transferase 16 U/L (5-31); Bilirubin Total 0.2 mg/dL (0.0-1.0); Blood Urea Nitrogen 11 mg/dL (9-16); Calcium 9.3 mg/dL (8.4-10.2); Carbon Dioxide 25 mmol/L (22-29); Chloride 110 mmol/L (96-108); Creatinine Clr Calc Pharmacy 104.6; Estimated Glomerular Filt Rate > 60; Glucose Random 91 mg/dL (60-115); HCG Quantitative < 2 mIU/mL; Lipase 46 U/L (8-78); Potassium 4.6 mmol/L (3.3-5.1); Sodium 143 mmol/L (135-145); Total Protein 7.3 g/dL (6.5-8.0)
[2023-08-30] MEDS: iohexoL 350 MG/ML 100 ML INFUS..BTL IV (09:20)
[2023-08-30 11:36] LABS: OBS Int Ctl Valid YES; OBS1 NEGATIVE (NEGATIVE)
[2023-08-30 12:17] VITALS: BP 119/72; PULSE 83; RESP 16; TEMP 36.9; O2SAT 100
== END 2023-08-30 12:19 | disposition home or self-care (01) ==
PROVIDERS: Physician Assistant; Emergency Provider Emergency Medicine
DX: K62.5 Hemorrhage of anus and rectum (principal); R10.31 Right lower quadrant pain; R10.2 Pelvic and perineal pain; Z79.899 Other long term (current) drug therapy
CPT/HCPCS: 36415; 74177; 80053; 82272; 83690; 84702; 85025; 99284; Q9967